=== PATIENT | female | born 1945 | race American Indian/Alaskan Native ===

== ENCOUNTER 2018-07-19 20:26 | Inpatient (IN) | payer MEDICARE ==
[2018-07-19 21:50] LABS: Hematocrit 35.5 % (30.3-42.9); Hemoglobin 11.9 gm/dl (10.1-14.3); Mean Corpuscular HGB Conc 34 % (30-34); Mean Corpuscular Volume 90 fl (79-97); Platelet Count 309 K/mm3 (140-440); Red Blood Count 3.93 M/mm3 (3.65-5.03); Red Cell Distribution Width 14.7 % (13.2-15.2)
[2018-07-19 22:03] LABS: Alanine Aminotransferase 8 units/L (7-56); BUN/Creatinine Ratio 20; Blood Urea Nitrogen 16 mg/dL (7-17); Calcium 9.6 mg/dL (8.4-10.2); Hemolysis Index 4
[2018-07-19 22:36] LABS: Basophils % (Manual) 0 % (0.0-1.8); Total Cells Counted 100
[2018-07-19 22:37] LABS: RBC Morphology Normal
--- NOTE | 2018-07-19 22:45 | XRay Report ---
FINAL REPORT PROCEDURE: XR CHEST 1V AP TECHNIQUE: Chest radiograph anteroposterior view. CPT 15212 HISTORY: weakness COMPARISON: No prior studies are available for comparison. FINDINGS: Heart: Normal. Mediastinum/Vessels: Normal. Lungs/Pleural space: Normal. Bony thorax: No acute osseous abnormality. Life support devices: None. IMPRESSION: No acute cardiopulmonary abnormality.
--- NOTE | 2018-07-19 22:50 | Cat Scan Report ---
FINAL REPORT PROCEDURE: CT HEAD/BRAIN WO CON TECHNIQUE: Computerized tomography of the head was performed without contrast material. HISTORY: weakness COMPARISON: No prior studies are available for comparison. FINDINGS: Skull and scalp: Normal. Paranasal sinuses: Paranasal sinuses are clear. There fluid in the right mastoid air cells.. Ventricles and subarachnoid spaces: Normal. Cerebrum: No evidence of hemorrhage, acute infarction or mass . Cerebellum and brainstem: No evidence of hemorrhage, acute infarction or mass. Vasculature: Normal. Comments: None. IMPRESSION: There is no acute intracranial abnormality. There is right mastoiditis.
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
[2018-07-19 23:22] LABS: Bacteria,Urine 1+ /HPF (Negative); Bilirubin,Urine NEG (Negative); Blood,Urine NEG (Negative); Color,Urine Yellow (Yellow); Mucus,Urine FEW /HPF
[2018-07-19] MEDS ORDERED: TYLENOL ONE (23:42)
[2018-07-19] MEDS ORDERED: ROCEPHIN/NS 1 GM/50 ML 1 GM/50 ML BAG IV ONE (23:56)
[2018-07-20] MEDS ORDERED: TYLENOL PO ONE (01:12)
[2018-07-20] MEDS ORDERED: TYLENOL PO PRN (04:16)
[2018-07-20] MEDS ORDERED: ZOFRAN IV PRN (04:16)
[2018-07-20] MEDS ORDERED: SODIUM CHLORIDE FLUSH SYRINGE 10 ML IV PRN (04:16)
--- NOTE | 2018-07-20 04:20 | History and Physical Report ---
History of Present Illness Date of examination: 07/20/18 Date of admission: 07/19/18 23:56 Chief complaint: Leg weakness, inability to ambulate x5 months History of present illness: Patient is a 73-year-old black female with past medical history of CVA, spinal stenosis, glaucoma, osteoarthritis, obesity, who presents to the ER with complaints of bilateral knee pain and the swelling, inability to ambulate x5 months. Patient states that she was seen by a physician who diagnosed her with osteoarthritis, she had not been able to walk, she has been remaining in bed. Patient states she had not received any physical therapy, she had a home health nurse who came to her house once to assess her condition. She denies any acute pain except for the left knees when she moves, she denies any falls, or any injury, denies fever, denies any chills, denies nausea or vomiting. In the ER a urine analysis was positive for UTI, patient is afebrile and her labs are within normal limits. Patient is admitted for further evaluation and treatment. Past History Past Medical History: stroke, other (obesity, glaucoma, spinal stenosis) Past Surgical History: No surgical history Social history: other (live at home with son) Family history: no significant family history Medications and Allergies Allergies Allergy/AdvReac Type Severity Reaction Status Date / Time No Known Allergies Allergy Unverified 07/19/18 20:55 Active Meds: Active Medications Acetaminophen (Tylenol) 650 mg PO Q4H PRN PRN Reason: Pain MILD(1-3)/Fever >100.5/OLIVAREZ Docusate Sodium (Colace) 100 mg PO BID GAL Review of Systems Musculoskeletal: muscle weakness, myalgias, limitation of motion, gait dysfunction Integumentary: dryness Exam - Constitutional Vitals: Temp Pulse Resp BP Pulse Ox 97.9 F 72 16 141/72 100 07/19/18 20:40 07/20/18 02:03 07/20/18 03:36 07/20/18 02:03 07/19/18 22:10 General appearance: Present: no acute distress - EENT Eyes: Present: EOM intact ENT: hearing intact - Neck Neck: Present: rigidity, other (limited range of motion) - Extremities Extremity abnormal: edema (trace edema) Peripheral Pulses: within normal limits - Integumentary Integumentary: Present: warm, dry - Musculoskeletal Musculoskeletal: generalized weakness - Psychiatric Psychiatric: appropriate mood/affect, intact judgment & insight, cooperative - Neurologic Neurologic: moves all extremities Results - Labs CBC & Chem 7: 07/19/18 21:32 07/19/18 21:32 Labs: Laboratory Last Values WBC 11.0 K/mm3 (4.5-11.0) 07/19/18 21:32 RBC 3.93 M/mm3 (3.65-5.03) 07/19/18 21:32 Hgb 11.9 gm/dl (10.1-14.3) 07/19/18 21:32 Hct 35.5 % (30.3-42.9) 07/19/18 21:32 MCV 90 fl (79-97) 07/19/18 21:32 MCH 30 pg (28-32) 07/19/18 21:32 MCHC 34 % (30-34) 07/19/18 21:32 RDW 14.7 % (13.2-15.2) 07/19/18 21:32 Plt Count 309 K/mm3 (140-440) 07/19/18 21:32 Add Manual Diff Complete 07/19/18 21:32 Total Counted 100 07/19/18 21:32 Seg Neuts % (Manual) 82.0 % (40.0-70.0) H 07/19/18 21:32 Band Neutrophils % 0 % 07/19/18 21:32 Lymphocytes % (Manual) 9.0 % (13.4-35.0) L 07/19/18 21:32 Reactive Lymphs % (Man) 0 % 07/19/18 21:32 Monocytes % (Manual) 8.0 % (0.0-7.3) H 07/19/18 21:32 Eosinophils % (Manual) 1.0 % (0.0-4.3) 07/19/18 21:32 Basophils % (Manual) 0 % (0.0-1.8) 07/19/18 21:32 Metamyelocytes % 0 % 07/19/18 21:32 Myelocytes % 0 % 07/19/18 21:32 Promyelocytes % 0 % 07/19/18 21:32 Blast Cells % 0 % 07/19/18 21:32 Nucleated RBC % Not Reportable 07/19/18 21:32 Seg Neutrophils # Man 9.0 K/mm3 (1.8-7.7) H 07/19/18 21:32 Band Neutrophils # 0.0 K/mm3 07/19/18 21:32 Lymphocytes # (Manual) 1.0 K/mm3 (1.2-5.4) L 07/19/18 21:32 Abs React Lymphs (Man) 0.0 K/mm3 07/19/18 21:32 Monocytes # (Manual) 0.9 K/mm3 (0.0-0.8) H 07/19/18 21:32 Eosinophils # (Manual) 0.1 K/mm3 (0.0-0.4) 07/19/18 21:32 Basophils # (Manual) 0.0 K/mm3 (0.0-0.1) 07/19/18 21:32 Metamyelocytes # 0.0 K/mm3 07/19/18 21:32 Myelocytes # 0.0 K/mm3 07/19/18 21:32 Promyelocytes # 0.0 K/mm3 07/19/18 21:32 Blast Cells # 0.0 K/mm3 07/19/18 21:32 WBC Morphology Not Reportable 07/19/18 21:32 Hypersegmented Neuts Not Reportable 07/19/18 21:32 Hyposegmented Neuts Not Reportable 07/19/18 21:32 Hypogranular Neuts Not Reportable 07/19/18 21:32 Smudge Cells Not Reportable 07/19/18 21:32 Toxic Granulation Not Reportable 07/19/18 21:32 Toxic Vacuolation Not Reportable 07/19/18 21:32 Dohle Bodies Not Reportable 07/19/18 21:32 Pelger-Huet Anomaly Not Reportable 07/19/18 21:32 Willie Rods Not Reportable 07/19/18 21:32 Platelet Estimate Appears normal 07/19/18 21:32 Clumped Platelets Not Reportable 07/19/18 21:32 Plt Clumps, EDTA Not Reportable 07/19/18 21:32 Large Platelets Not Reportable 07/19/18 21:32 Giant Platelets Not Reportable 07/19/18 21:32 Platelet Satelliting Not Reportable 07/19/18 21:32 Plt Morphology Comment Not Reportable 07/19/18 21:32 RBC Morphology Normal 07/19/18 21:32 Dimorphic RBCs Not Reportable 07/19/18 21:32 Polychromasia Not Reportable 07/19/18 21:32 Hypochromasia Not Reportable 07/19/18 21:32 Poikilocytosis Not Reportable 07/19/18 21:32 Anisocytosis Not Reportable 07/19/18 21:32 Microcytosis Not Reportable 07/19/18 21:32 Macrocytosis Not Reportable 07/19/18 21:32 Spherocytes Not Reportable 07/19/18 21:32 Pappenheimer Bodies Not Reportable 07/19/18 21:32 Sickle Cells Not Reportable 07/19/18 21:32 Target Cells Not Reportable 07/19/18 21:32 Tear Drop Cells Not Reportable 07/19/18 21:32 Ovalocytes Not Reportable 07/19/18 21:32 Helmet Cells Not Reportable 07/19/18 21:32 Blue[place] Bodies Not Reportable 07/19/18 21:32 [place] Rings Not Reportable 07/19/18 21:32 [place] Cells Not Reportable 07/19/18 21:32 Bite Cells Not Reportable 07/19/18 21:32 Crenated Cell Not Reportable 07/19/18 21:32 Elliptocytes Not Reportable 07/19/18 21:32 Acanthocytes (Spur) Not Reportable 07/19/18 21:32 Rouleaux Not Reportable 07/19/18 21:32 Hemoglobin C Crystals Not Reportable 07/19/18 21:32 Schistocytes Not Reportable 07/19/18 21:32 Malaria parasites Not Reportable 07/19/18 21:32 Jose Manuel Bodies Not Reportable 07/19/18 21:32 Hem Pathologist Commnt No 07/19/18 21:32 Sodium 141 mmol/L (137-145) 07/19/18 21:32 Potassium 3.9 mmol/L (3.6-5.0) 07/19/18 21:32 Chloride 101.2 mmol/L (98-107) 07/19/18 21:32 Carbon Dioxide 29 mmol/L (22-30) 07/19/18 21:32 Anion Gap 15 mmol/L 07/19/18 21:32 BUN 16 mg/dL (7-17) 07/19/18 21:32 Creatinine 0.8 mg/dL (0.7-1.2) 07/19/18 21:32 Estimated GFR > 60 ml/min 07/19/18 21:32 BUN/Creatinine Ratio 20 % 07/19/18 21:32 Glucose 127 mg/dL (65-100) H 07/19/18 21:32 Calcium 9.6 mg/dL (8.4-10.2) 07/19/18 21:32 Total Bilirubin 0.30 mg/dL (0.1-1.2) 07/19/18 21:32 AST 13 units/L (5-40) 07/19/18 21:32 ALT 8 units/L (7-56) 07/19/18 21:32 Alkaline Phosphatase 78 units/L (35-129) 07/19/18 21:32 Total Protein 7.4 g/dL (6.3-8.2) 07/19/18 21:32 Albumin 4.0 g/dL (3.9-5) 07/19/18 21:32 Albumin/Globulin Ratio 1.2 % 07/19/18 21:32 Urine Color Yellow (Yellow) 07/19/18 22:56 Urine Turbidity Slightly-cloudy (Clear) 07/19/18 22:56 Urine pH 5.0 (5.0-7.0) 07/19/18 22:56 Ur Specific [place] 1.017 (1.003-1.030) 07/19/18 22:56 Urine Protein 100 mg/dl mg/dL (Negative) 07/19/18 22:56 Urine Glucose (UA) Neg mg/dL (Negative) 07/19/18 22:56 Urine Ketones Neg mg/dL (Negative) 07/19/18 22:56 Urine Blood Neg (Negative) 07/19/18 22:56 Urine Nitrite Neg (Negative) 07/19/18 22:56 Urine Bilirubin Neg (Negative) 07/19/18 22:56 Urine Urobilinogen 4.0 mg/dL (<2.0) 07/19/18 22:56 Ur Leukocyte Esterase Lg (Negative) 07/19/18 22:56 Urine WBC (Auto) 48.0 /HPF (0.0-6.0) H 07/19/18 22:56 Urine RBC (Auto) 10.0 /HPF (0.0-6.0) 07/19/18 22:56 U Epithel Cells (Auto) 2.0 /HPF (0-13.0) 07/19/18 22:56 Urine Bacteria (Auto) 1+ /HPF (Negative) 07/19/18 22:56 Urine Mucus Few /HPF 07/19/18 22:56 Urine Yeast (Budding) 2+ /HPF 07/19/18 22:56 Assessment and Plan Assessment and plan: 73-year-old female with history of five-month immobility presents with complaints of knees pain, swelling and inability to ambulate, UA positive for UTI 1. Acute UTI (due to immobility) 2. History of spinal stenosis 3. Osteoarthritis 4. History of CVA 5. History of osteoarthritis 6. Debilitating/gait instability 7. Bilateral leg weakness 8. Obesity Plan: Admit for UTI and debilitation Monitor vital signs/Remote telemetry IV fluids for hydration. Antibiotics with ceftriaxone for UTI PE to eval for gait instability Cardiac diet DVT prophylaxis with Lovenox Further plan per hospital course Plan of care discussed with patient, voice understanding Patient's condition and the plan of care discuss with Dr. Schneider Advance Directives: Yes VTE prophylaxis?: Chemical Plan of care discussed with patient/family: Yes
[2018-07-20] MEDS: PERCOCET 5/325 PO PRN ×2 (06:26→22:12)
[2018-07-20] MEDS: LOVENOX SUB-Q SCH (10:43)
[2018-07-20] MEDS: COLACE PO SCH ×2 (10:43→22:10)
[2018-07-20] MEDS: PEPCID IV SCH ×2 (10:43→22:10)
[2018-07-20] MEDS: NACL 0.9% 1000 ML 1,000 ML IV SCH (10:44)
[2018-07-20] MEDS: SODIUM CHLORIDE FLUSH SYRINGE 10 ML IV SCH ×2 (10:44→22:10)
[2018-07-20] MEDS: ROCEPHIN/NS 1 GM/50 ML 1 GM/50 ML BAG IV SCH (11:00)
[2018-07-20] MEDS ORDERED: MOBIC PO SCH (16:00)
[2018-07-20] MEDS: MOBIC PO SCH (16:31)
[2018-07-20] MEDS: MEDROL PO SCH ×2 (17:11→22:09)
--- NOTE | 2018-07-20 21:40 | XRay Report ---
FINAL REPORT EXAM: XR KNEE BILAT 3V HISTORY: knee pain and swelling TECHNIQUE: Frontal, lateral and oblique views of both knees Comparison: None FINDINGS: Right knee: There is joint space loss of the tibiofemoral and patellofemoral joints consistent with degenerative change. There is the appearance of erosive change involving superior posterior aspect of the patella a possib ly the anterior aspect of the distal femur in this region. There is evidence of a large joint effusio n. Left knee: There is joint space loss of the tibiofemoral and patellofemoral joints. There is no definite evidence of joint effusion. IMPRESSION: 1. Evidence of degenerative change of the tibiofemoral and patellofemoral joints bilaterally. 2. Evidence of a large right joint effusion with possible erosive change involving the superior poste rior aspect of the patella and the adjacent distal anterior aspect of the femur. Infectious and nonin fectious etiologies need to be considered. CT may be helpful for further evaluation. Comparison with previous imaging studies would also be helpful.
[2018-07-21] MEDS: NACL 0.9% 1000 ML 1,000 ML IV SCH ×2 (02:11→17:15)
--- NOTE | 2018-07-21 07:32 | Progress Note ---
Assessment and Plan Assessment and plan: 73-year-old black female with past medical history of CVA, spinal stenosis, glaucoma, osteoarthritis, obesity, -she presents with bilateral knee pain, R knee swelling, and inablity to transfer from bed to wheelchair which she was previously able to do Diagnosis ataxia ambulatory dysfunction bilateral knee OA with acute flare R knee effusion UTI Obesity Plan -cont PT, planned for ANOOP -Ortho consult to eval for R knee effusion -obtain urine cx, empiric abx x 3 days for uncomplicated UTI -advised on weight loss, at this time, counseled on diet DVT ppx chemical History Interval history: c/o Bilat knee pain and R knee effusion Review of systems Constitutional: No fevers, no malaise, no joint pains CVS: No chest pain, no orthopnea, no dyspnea on exertion, no pedal edema GI: No abdominal pain, no diarrhea, no vomiting, no constipation Respiratory: No shortness of breath, no wheezing, no coughing Hospitalist Physical - Physical exam Narrative exam: General.: Appears well, no distress, nontoxic HEENT: Moist mucous membranes, extraocular muscles intact, no lymphadenopathy Neck: supple Cardiac: S1-S2 heard Lungs: clear to auscultation bilaterally Abdomen: soft , nontender, nondistended, bowel sounds positive Extremities: Bilateral decrease of range of motion in knees, right knee effusion. Neither knee is warm to touch, not tender to touch either Skin: no rash or lesions Neurologic: no gross focal deficits Psych: calm, and cooperative - Constitutional Vitals: Temp Pulse Resp BP Pulse Ox 98.2 F 75 20 168/75 98 07/21/18 05:00 07/21/18 05:00 07/21/18 05:00 07/21/18 05:00 07/21/18 05:00 General appearance: Present: no acute distress Results - Labs CBC & Chem 7: 07/19/18 21:32 07/19/18 21:32 Labs: Laboratory Last Values WBC 11.0 K/mm3 (4.5-11.0) 07/19/18 21:32 RBC 3.93 M/mm3 (3.65-5.03) 07/19/18 21:32 Hgb 11.9 gm/dl (10.1-14.3) 07/19/18 21:32 Hct 35.5 % (30.3-42.9) 07/19/18 21:32 MCV 90 fl (79-97) 07/19/18 21:32 MCH 30 pg (28-32) 07/19/18 21:32 MCHC 34 % (30-34) 07/19/18 21:32 RDW 14.7 % (13.2-15.2) 07/19/18 21:32 Plt Count 309 K/mm3 (140-440) 07/19/18 21:32 Add Manual Diff Complete 07/19/18 21:32 Total Counted 100 07/19/18 21:32 Seg Neuts % (Manual) 82.0 % (40.0-70.0) H 07/19/18 21:32 Band Neutrophils % 0 % 07/19/18 21:32 Lymphocytes % (Manual) 9.0 % (13.4-35.0) L 07/19/18 21:32 Reactive Lymphs % (Man) 0 % 07/19/18 21:32 Monocytes % (Manual) 8.0 % (0.0-7.3) H 07/19/18 21:32 Eosinophils % (Manual) 1.0 % (0.0-4.3) 07/19/18 21:32 Basophils % (Manual) 0 % (0.0-1.8) 07/19/18 21:32 Metamyelocytes % 0 % 07/19/18 21:32 Myelocytes % 0 % 07/19/18 21:32 Promyelocytes % 0 % 07/19/18 21:32 Blast Cells % 0 % 07/19/18 21:32 Nucleated RBC % Not Reportable 07/19/18 21:32 Seg Neutrophils # Man 9.0 K/mm3 (1.8-7.7) H 07/19/18 21:32 Band Neutrophils # 0.0 K/mm3 07/19/18 21:32 Lymphocytes # (Manual) 1.0 K/mm3 (1.2-5.4) L 07/19/18 21:32 Abs React Lymphs (Man) 0.0 K/mm3 07/19/18 21:32 Monocytes # (Manual) 0.9 K/mm3 (0.0-0.8) H 07/19/18 21:32 Eosinophils # (Manual) 0.1 K/mm3 (0.0-0.4) 07/19/18 21:32 Basophils # (Manual) 0.0 K/mm3 (0.0-0.1) 07/19/18 21:32 Metamyelocytes # 0.0 K/mm3 07/19/18 21:32 Myelocytes # 0.0 K/mm3 07/19/18 21:32 Promyelocytes # 0.0 K/mm3 07/19/18 21:32 Blast Cells # 0.0 K/mm3 07/19/18 21:32 WBC Morphology Not Reportable 07/19/18 21:32 Hypersegmented Neuts Not Reportable 07/19/18 21:32 Hyposegmented Neuts Not Reportable 07/19/18 21:32 Hypogranular Neuts Not Reportable 07/19/18 21:32 Smudge Cells Not Reportable 07/19/18 21:32 Toxic Granulation Not Reportable 07/19/18 21:32 Toxic Vacuolation Not Reportable 07/19/18 21:32 Dohle Bodies Not Reportable 07/19/18 21:32 Pelger-Huet Anomaly Not Reportable 07/19/18 21:32 Willie Rods Not Reportable 07/19/18 21:32 Platelet Estimate Appears normal 07/19/18 21:32 Clumped Platelets Not Reportable 07/19/18 21:32 Plt Clumps, EDTA Not Reportable 07/19/18 21:32 Large Platelets Not Reportable 07/19/18 21:32 Giant Platelets Not Reportable 07/19/18 21:32 Platelet Satelliting Not Reportable 07/19/18 21:32 Plt Morphology Comment Not Reportable 07/19/18 21:32 RBC Morphology Normal 07/19/18 21:32 Dimorphic RBCs Not Reportable 07/19/18 21:32 Polychromasia Not Reportable 07/19/18 21:32 Hypochromasia Not Reportable 07/19/18 21:32 Poikilocytosis Not Reportable 07/19/18 21:32 Anisocytosis Not Reportable 07/19/18 21:32 Microcytosis Not Reportable 07/19/18 21:32 Macrocytosis Not Reportable 07/19/18 21:32 Spherocytes Not Reportable 07/19/18 21:32 Pappenheimer Bodies Not Reportable 07/19/18 21:32 Sickle Cells Not Reportable 07/19/18 21:32 Target Cells Not Reportable 07/19/18 21:32 Tear Drop Cells Not Reportable 07/19/18 21:32 Ovalocytes Not Reportable 07/19/18 21:32 Helmet Cells Not Reportable 07/19/18 21:32 Blue-[place] Bodies Not Reportable 07/19/18 21:32 [place] Rings Not Reportable 07/19/18 21:32 [place] Cells Not Reportable 07/19/18 21:32 Bite Cells Not Reportable 07/19/18 21:32 Crenated Cell Not Reportable 07/19/18 21:32 Elliptocytes Not Reportable 07/19/18 21:32 Acanthocytes (Spur) Not Reportable 07/19/18 21:32 Rouleaux Not Reportable 07/19/18 21:32 Hemoglobin C Crystals Not Reportable 07/19/18 21:32 Schistocytes Not Reportable 07/19/18 21:32 Malaria parasites Not Reportable 07/19/18 21:32 Jose Manuel Bodies Not Reportable 07/19/18 21:32 Hem Pathologist Commnt No 07/19/18 21:32 Sodium 141 mmol/L (137-145) 07/19/18 21:32 Potassium 3.9 mmol/L (3.6-5.0) 07/19/18 21:32 Chloride 101.2 mmol/L (98-107) 07/19/18 21:32 Carbon Dioxide 29 mmol/L (22-30) 07/19/18 21:32 Anion Gap 15 mmol/L 07/19/18 21:32 BUN 16 mg/dL (7-17) 07/19/18 21:32 Creatinine 0.8 mg/dL (0.7-1.2) 07/19/18 21:32 Estimated GFR > 60 ml/min 07/19/18 21:32 BUN/Creatinine Ratio 20 % 07/19/18 21:32 Glucose 127 mg/dL (65-100) H 07/19/18 21:32 Calcium 9.6 mg/dL (8.4-10.2) 07/19/18 21:32 Total Bilirubin 0.30 mg/dL (0.1-1.2) 07/19/18 21:32 AST 13 units/L (5-40) 07/19/18 21:32 ALT 8 units/L (7-56) 07/19/18 21:32 Alkaline Phosphatase 78 units/L (35-129) 07/19/18 21:32 Total Protein 7.4 g/dL (6.3-8.2) 07/19/18 21:32 Albumin 4.0 g/dL (3.9-5) 07/19/18 21:32 Albumin/Globulin Ratio 1.2 % 07/19/18 21:32 Urine Color Yellow (Yellow) 07/19/18 22:56 Urine Turbidity Slightly-cloudy (Clear) 07/19/18 22:56 Urine pH 5.0 (5.0-7.0) 07/19/18 22:56 Ur Specific [place] 1.017 (1.003-1.030) 07/19/18 22:56 Urine Protein 100 mg/dl mg/dL (Negative) 07/19/18 22:56 Urine Glucose (UA) Neg mg/dL (Negative) 07/19/18 22:56 Urine Ketones Neg mg/dL (Negative) 07/19/18 22:56 Urine Blood Neg (Negative) 07/19/18 22:56 Urine Nitrite Neg (Negative) 07/19/18 22:56 Urine Bilirubin Neg (Negative) 07/19/18 22:56 Urine Urobilinogen 4.0 mg/dL (<2.0) 07/19/18 22:56 Ur Leukocyte Esterase Lg (Negative) 07/19/18 22:56 Urine WBC (Auto) 48.0 /HPF (0.0-6.0) H 07/19/18 22:56 Urine RBC (Auto) 10.0 /HPF (0.0-6.0) 07/19/18 22:56 U Epithel Cells (Auto) 2.0 /HPF (0-13.0) 07/19/18 22:56 Urine Bacteria (Auto) 1+ /HPF (Negative) 07/19/18 22:56 Urine Mucus Few /HPF 07/19/18 22:56 Urine Yeast (Budding) 2+ /HPF 07/19/18 22:56
[2018-07-21] MEDS: ROCEPHIN/NS 1 GM/50 ML 1 GM/50 ML BAG IV SCH (09:53)
[2018-07-21] MEDS: MOBIC PO SCH (09:54)
[2018-07-21] MEDS: PEPCID IV SCH ×2 (09:54→21:31)
[2018-07-21] MEDS: LOVENOX SUB-Q SCH (09:54)
[2018-07-21] MEDS: MEDROL PO SCH ×2 (09:54→21:31)
[2018-07-21] MEDS: COLACE PO SCH ×2 (09:54→21:31)
[2018-07-21] MEDS: SODIUM CHLORIDE FLUSH SYRINGE 10 ML IV SCH ×2 (09:55→21:31)
[2018-07-21] MEDS: NORVASC PO SCH (13:14)
[2018-07-21] MEDS: PERCOCET 5/325 PO PRN (18:17)
[2018-07-22] MEDS: NACL 0.9% 1000 ML 1,000 ML IV SCH (05:20)
[2018-07-22] MEDS: PERCOCET 5/325 PO PRN (06:26)
[2018-07-22] MEDS: APRESOLINE IV PRN ×2 (07:48→11:47)
[2018-07-22] MEDS: MOBIC PO SCH (07:51)
[2018-07-22] MEDS: MEDROL PO SCH (09:16)
[2018-07-22] MEDS: PEPCID IV SCH (09:16)
[2018-07-22] MEDS: NORVASC PO SCH (09:17)
[2018-07-22] MEDS: LOVENOX SUB-Q SCH (09:17)
[2018-07-22] MEDS: SODIUM CHLORIDE FLUSH SYRINGE 10 ML IV SCH (09:18)
[2018-07-22] MEDS: COLACE PO SCH (09:22)
[2018-07-22] MEDS: ROCEPHIN/NS 1 GM/50 ML 1 GM/50 ML BAG IV SCH (11:30)
--- NOTE | 2018-07-22 11:59 | Discharge Summary ---
Providers - Providers Date of Admission: 07/19/18 23:56 Attending physician: ANGELA URIAS MD 07/20/18 04:21 Physical Therapy Evaluation and Treat [CONS] Routine Comment: evaluate and treat, needs a walker Reason For Exam: immobility Mode of Transport?: Wheelchair Weight bearing status?: Partial wt bearing Assistive devices?: No 07/20/18 13:38 Occupational Therapy Evaluate and Treat [CONS] Routine Comment: Reason For Exam: generalized weakness 07/21/18 07:21 Consult to Physician [CONS] Routine Comment: Consulting Provider: MILLA CHAMBERLAIN Physician Instructions: Reason For Exam: R knee pain and effusion Primary care physician: MARRY GILL Hospitalization Condition: Stable Hospital course: 73-year-old black female with past medical history of CVA, spinal stenosis, glaucoma, osteoarthritis, obesity, -she presents with bilateral knee pain, R knee swelling, and inablity to transfer from bed to wheelchair which she was previously able to do Hosital course she received PT, and was transfered to [facility] [place] Xrays confirmed bilat sever OA of knees -she was rx with empiric abx x 3 days for uncomplicated UTI -advised on weight loss, at this time, counseled on diet Diagnosis ataxia ambulatory dysfunction bilateral knee OA with acute flare R knee effusion UTI Obesity SIRS, no evidence of sepsis, elevated HR and RR was due to knee pain Disposition: [id number] Time spent for discharge: 33 mins Core Measure Documentation - Palliative Care Palliative Care/ Comfort Measures: Not Applicable - Core Measures Any of the following diagnoses?: none Exam - Physical Exam Narrative exam: General.: Appears well, no distress, nontoxic HEENT: Moist mucous membranes, extraocular muscles intact, no lymphadenopathy Neck: supple Cardiac: S1-S2 heard Lungs: clear to auscultation bilaterally Abdomen: soft , nontender, nondistended, bowel sounds positive Extremities: Bilateral decrease of range of motion in knees, right knee effusion. Neither knee is warm to touch, not tender to touch either Skin: no rash or lesions Neurologic: no gross focal deficits Psych: calm, and cooperative - Constitutional Vitals: Temp Pulse Resp BP Pulse Ox 98.0 F 80 22 190/83 100 07/22/18 11:22 07/22/18 11:37 07/22/18 11:22 07/22/18 11:47 07/22/18 11:22 Plan Follow up with: MARRY GILL MD [Primary Care Provider] - 7 Days Prescriptions: Lisinopril [Zestril TAB] 40 mg PO QDAY #30 tablet NIFEdipine XL [Procardia Xl] 60 mg PO Q12HR #60 tab oxyCODONE /ACETAMINOPHEN [Percocet 5/325 mg] 1 tab PO Q6H PRN #7 tablet PRN Reason: Pain, Moderate (4-6)
[2018-07-22] MEDS ORDERED: ZESTRIL PO SCH (12:00)
[2018-07-22] MEDS ORDERED: PROCARDIA XL PO SCH (12:00)
[2018-07-22 13:42] VITALS: BP 167/78
== END 2018-07-22 14:25 | DRG 565 ==
LOC: ED 20:26 → 3A 23:56
PROVIDERS: ADMIT Internal Medicine; ATTEND Internal Medicine
DX: M25.461 Effusion, right knee (principal); N39.0 Urinary tract infection, site not specified; R65.10 Systemic inflammatory response syndrome (SIRS) of non-infectious origin without acute organ dysfunction; R53.81 Other malaise; R27.0 Ataxia, unspecified; M17.0 Bilateral primary osteoarthritis of knee; E66.9 Obesity, unspecified; Z68.36 Body mass index [BMI] 36.0-36.9, adult; Z86.73 Personal history of transient ischemic attack (TIA), and cerebral infarction without residual deficits; E11.9 Type 2 diabetes mellitus without complications; H40.9 Unspecified glaucoma; Z71.3 Dietary counseling and surveillance
CPT/HCPCS: 36415; 70450; 71045; 80053; 81001; 82962; 85007; 85025; 87086; 87116; G0378; J0360; J0696; J1650; J7030; J7509